=== PATIENT | female | born 1965 | race Hispanic/Latino ===

== ENCOUNTER 2017-04-04 16:14 | Emergency (ER) | payer MEDICARE, MEDICAID ==
[2017-04-04 19:44] VITALS: BP 139/100
[2017-04-04] MEDS ORDERED: ZOFRAN ODT PO ONE (20:32)
[2017-04-04] MEDS ORDERED: NORCO 5/325 PO ONE ×2 (20:32→21:11)
--- NOTE | 2017-04-04 20:48 | Emergency Department Report ---
- General Chief complaint: Skin/Abscess/Foreign Body Stated complaint: COLD SX Time Seen by Provider: 04/04/17 20:23 Source: patient Mode of arrival: Ambulatory Limitations: No Limitations - History of Present Illness Initial comments: 52-year-old female past medical history hypertension presents with complaint of small abscess to anterior chest between breast for 2 days. Patient has had multiple recurrences and drainages of this abscess in the past. Patient denies fevers chills nausea vomiting. States she has yet to see a embalmer/funeral director for this issue. MD complaint: abscess/boil Onset/Timin -: days(s) Severity: moderate Severity scale (0 -10): 6 Quality: aching Consistency: intermittent Improves with: none Worsens with: none Context: none Associated symptoms: denies other symptoms Treatments Prior to Arrival: none - Related Data Previous Rx's Medication Instructions Recorded Last Taken Type Acetaminophen/Codeine [Tylenol 1 tab PO Q6H PRN #6 tab 04/04/17 Unknown Rx /Codeine # 3 tab] Clindamycin [Clindamycin CAP] 300 mg PO Q6H #28 capsule 04/04/17 Unknown Rx Ibuprofen [Motrin] 800 mg PO Q8HR PRN #30 tablet 04/04/17 Unknown Rx Allergies Allergy/AdvReac Type Severity Reaction Status Date / Time Penicillins Allergy Anaphylaxis Verified 04/04/17 19:38 Abscess Boil HPI - HPI Chief Complaint: Skin/Abscess/Foreign Body Stated Complaint: COLD SX Time Seen by Provider: 04/04/17 20:23 Home Medications: Previous Rx's Medication Instructions Recorded Last Taken Type Acetaminophen/Codeine [Tylenol 1 tab PO Q6H PRN #6 tab 04/04/17 Unknown Rx /Codeine # 3 tab] Clindamycin [Clindamycin CAP] 300 mg PO Q6H #28 capsule 04/04/17 Unknown Rx Ibuprofen [Motrin] 800 mg PO Q8HR PRN #30 tablet 04/04/17 Unknown Rx Allergies/Adverse Reactions: Allergies Allergy/AdvReac Type Severity Reaction Status Date / Time Penicillins Allergy Anaphylaxis Verified 04/04/17 19:38 ED Review of Systems ROS: Stated complaint: COLD SX Other details as noted in HPI Constitutional: denies: chills, fever Eyes: denies: eye pain, eye discharge, vision change ENT: denies: ear pain, throat pain Respiratory: denies: cough, shortness of breath, wheezing Cardiovascular: as per HPI. denies: chest pain, palpitations Endocrine: no symptoms reported Gastrointestinal: denies: abdominal pain, nausea, diarrhea Genitourinary: denies: urgency, dysuria, discharge Musculoskeletal: denies: back pain, joint swelling, arthralgia Skin: as per HPI, other (abscess anterio chest, hx of ). denies: rash, lesions Neurological: denies: headache, weakness, paresthesias Psychiatric: denies: anxiety, depression Hematological/Lymphatic: denies: easy bleeding, easy bruising ED Past Medical Hx - Past Medical History Hx Hypertension: Yes - Surgical History Past Surgical History?: No Additional Surgical History: back - Social History Smoking Status: Never Smoker Substance Use Type: None - Medications Home Medications: Home Medications Medication Instructions Recorded Confirmed Last Taken Type Acetaminophen/Codeine [Tylenol 1 tab PO Q6H PRN #6 tab 04/04/17 Unknown Rx /Codeine # 3 tab] Clindamycin [Clindamycin CAP] 300 mg PO Q6H #28 capsule 04/04/17 Unknown Rx Ibuprofen [Motrin] 800 mg PO Q8HR PRN #30 tablet 04/04/17 Unknown Rx ED Physical Exam - General Limitations: No Limitations General appearance: alert, in no apparent distress - Head Head exam: Present: atraumatic, normocephalic - Eye Eye exam: Present: normal appearance, PERRL, EOMI - ENT ENT exam: Present: mucous membranes moist - Neck Neck exam: Present: normal inspection - Respiratory Respiratory exam: Present: normal lung sounds bilaterally. Absent: respiratory distress - Cardiovascular Cardiovascular Exam: Present: regular rate, normal rhythm. Absent: systolic murmur, diastolic murmur, rubs, gallop - GI/Abdominal GI/Abdominal exam: Present: soft, normal bowel sounds - Extremities Exam Extremities exam: Present: normal inspection - Back Exam Back exam: Present: normal inspection - Neurological Exam Neurological exam: Present: alert, oriented X3 - Psychiatric Psychiatric exam: Present: normal affect, normal mood - Skin Skin exam: Present: warm, dry, intact, normal color. Absent: rash - Expanded Skin Exam Expanded Type of lesion: Present: abscess Distribution of rash: chest (anterior chest abscess between breasts) Description of rash: Present: macular, fluctuant 1 - abscess 3x4 cm above sternum ED Course Vital Signs 04/04/17 19:40 Temperature 98 F Pulse Rate 92 H Blood Pressure 139/100 O2 Sat by Pulse 98 Oximetry - I & D Anterior Chest Site: anterior chest between breasts Blade Size: 11 I & D Procedure: betadine prep, gauze wick placed (1/4 inch iodoform gauze 4 inches placed) Progress: Area infiltrated with lidocaine 2% without epinephrine. Abscess incised and drained, good decompression achieved. Wound irrigated. Wound culture sent. Packed with iodoform gauze quarter-inch approximately 4 inches in length. Procedure tolerated well ED Medical Decision Making - Medical Decision Making A/P: Sebaceous cyst/anterior chest abscess 1-successful incision and drainage, significant decompression and relief expressed by palpation. Wound culture sent. NO involvment of breats tissue, no breast abscess, no cellulitis either breast on exam. 2-course of clindamycin, Motrin when necessary, short course Tylenol 3 when necessary 3-follow up with primary care and dermatology 4-I instructed patient to have packing removed in 24-48 hours. Patient can do this at home or can return to the ED to have this done. I also advised patient to return for any reaccumulation of abscess fever or chills or significant redness around chest and breast. Critical care attestation.: If time is entered above; I have spent that time in minutes in the direct care of this critically ill patient, excluding procedure time. ED Disposition Clinical Impression: Abscess, Sebaceous cyst Disposition: DC-01 TO HOME OR SELFCARE Is pt being admited?: No Does the pt Need Aspirin: No Condition: Stable Instructions: Abscess Incision and Drainage (ED), Abscess (ED), Acute Wound Care (ED) Prescriptions: Acetaminophen/Codeine [Tylenol /Codeine # 3 tab] 1 tab PO Q6H PRN #6 tab PRN Reason: Pain Clindamycin [Clindamycin CAP] 300 mg PO Q6H #28 capsule Ibuprofen [Motrin] 800 mg PO Q8HR PRN #30 tablet PRN Reason: Pain Referrals: [facility] [Provider Group] - 3-5 Days [facility] [Outside] - 3-5 Days Time of Disposition: 21:07
[2017-04-04] MEDS ORDERED: CLEOCIN PO ONE (21:11)
== END 2017-04-04 21:25 | disposition home or self-care (01) ==
LOC: ED 16:14
DX: L02.213 Cutaneous abscess of chest wall (principal); L72.3 Sebaceous cyst
CPT/HCPCS: 87116; 99282; Q0162